=== PATIENT | female | born 1990 | race Caucasian/White ===

== ENCOUNTER 2018-12-18 17:13 | Emergency (ER) | payer BC ==
[~2018-12-18] VITALS: Ht 170.2 cm; Wt 90.7 kg
[2018-12-18 17:15] VITALS: BP_SYST 146
--- NOTE | 2018-12-18 17:20 | NUR ---
Patient triaged and placed in waiting room. VSS and patient appears in no acute distress at this time. Accompanied by FATHER, awaiting available bed, and MD notified of need for MSE.
[2018-12-18] MEDS ORDERED: KETOROLAC TROMETHAMINE 60 MG/2 ML VIAL IM ONE (18:30)
[2018-12-18] MEDS ORDERED: HYDROcodone/ACETAMIN 10-325 MG TAB PO ONE (18:30)
[2018-12-18] MEDS ORDERED: BACITRACIN 1 GM OINT TP ONE (19:15)
--- NOTE | 2018-12-18 19:30 | NUR ---
Patient to ER bed 6 to gown for evaluation. Side rails up. Report given to Amor GAITAN.
--- NOTE | 2018-12-18 19:31 | NUR ---
ER PIEDAD Rhoades at bedside examining patient.
--- NOTE | 2018-12-18 19:32 | NUR ---
Pt [id number] presents to ED c/o 01/02 low back pain s/p falling off her horse prior to arrival. Abrasion noted to L elbow. Denies KO/n/v/d/cp. No other injuries/complaints per pt/noted. Will continue to monitor.
--- NOTE | 2018-12-18 19:47 | NUR ---
Medication administered. Pt tolerated well. No adverse reactions noted.
--- NOTE | 2018-12-18 19:53 | NUR ---
Patient given written and verbal discharge instructions and verbalizes understanding. ER CUSTOMS DIRECTOR [place] discussed with patient the results and treatment provided. Patient in stable condition. ID arm band removed. Rx of Bacitracin, Roy, Docusate Sodium, Motrin given. Patient educated on pain management and to follow up with PMD. Pain Scale 0 . Opportunity for questions provided and answered. Medication side effect fact sheet provided.
[2018-12-18 19:54] VITALS: BP_SYST 132
== END 2018-12-18 19:53 | disposition home or self-care (01) ==
LOC: SED 17:13
DX: S30.0XXA Contusion of lower back and pelvis, initial encounter (principal); S50.312A Abrasion of left elbow, initial encounter; V80.010A Animal-rider injured by fall from or being thrown from horse in noncollision accident, initial encounter; Y93.89 Activity, other specified; Y92.89 Other specified places as the place of occurrence of the external cause; Y99.8 Other external cause status
CPT/HCPCS: 72220; 81025; 96372; 99283; J1885